=== PATIENT | male | born 1980 | race American Indian/Alaskan Native ===

== ENCOUNTER 2018-12-29 08:55 | Emergency (ER) | payer OTHER, MEDICAID ==
--- NOTE | 2018-12-29 09:11 | EDM.PDOC ---
ED HPI GENERAL MEDICAL PROBLEM - General Chief Complaint: Upper Extremity Injury/Pain Stated Complaint: PAIN IN ARM Time Seen by Provider: 12/29/18 09:10 Source of Information: Reports: Patient, RN, RN Notes Reviewed History Limitations: Reports: No Limitations - History of Present Illness INITIAL COMMENTS - FREE TEXT/NARRATIVE: Pt to ER with c/o numbness/tingling, burning pain from the left elbow down to the hand. He states he cannot clench his hand. He states he has had back problems for many years. Denies any recent injury. He states he was seen in the clinic and was to start physical therapy, but had to renew his Medicaid and was unable to start yet. States the pain is worst when he is laying down, but does not depend on a position laying down, i.e. side to side, back. Onset: Gradual - Related Data Allergies Allergy/AdvReac Type Severity Reaction Status Date / Time No Known Allergies Allergy Verified 12/29/18 09:00 Home Meds: Home Meds Sertraline [Zoloft] 50 mg PO DAILY 12/29/18 [History] Past Medical History HEENT History: Reports: None Cardiovascular History: Reports: None Respiratory History: Reports: None Gastrointestinal History: Reports: None Genitourinary History: Reports: None Musculoskeletal History: Reports: None Neurological History: Reports: None Psychiatric History: Reports: Depression Endocrine/Metabolic History: Reports: None Hematologic History: Reports: None Immunologic History: Reports: None Oncologic (Cancer) History: Reports: None Dermatologic History: Reports: None - Infectious Disease History Infectious Disease History: Reports: None - Past Surgical History Head Surgeries/Procedures: Reports: None Social & Family History - Family History Family Medical History: Noncontributory - Tobacco Use Smoking Status *Q: Never Smoker - Caffeine Use Caffeine Use: Reports: Soda - Recreational Drug Use Recreational Drug Use: No Review of Systems - Review of Systems Review Of Systems: ROS reveals no pertinent complaints other than HPI. ED EXAM, GENERAL - Physical Exam Exam: See Below Exam Limited By: No Limitations General Appearance: Alert, WD/WN, No Apparent Distress Eye Exam: Bilateral Eye: EOMI, Normal Inspection Ears: Normal External Exam, Hearing Grossly Normal Nose: Normal Inspection Throat/Mouth: Normal Inspection, Normal Voice, No Airway Compromise Head: Atraumatic, Normocephalic Neck: Normal Inspection, Supple, Non-Tender, Full Range of Motion Respiratory/Chest: No Respiratory Distress, Lungs Clear, Normal Breath Sounds, No Accessory Muscle Use, Chest Non-Tender Cardiovascular: Normal Peripheral Pulses, Regular Rate, Rhythm, No Edema, No Gallop, No JVD, No Murmur, No Rub Peripheral Pulses: 2+: Radial (L), Radial (R) GI/Abdominal: Normal Bowel Sounds, Soft, Non-Tender, No Organomegaly, No Distention (Male) Exam: Deferred Rectal (Males) Exam: Deferred Back Exam: Normal Inspection, Full Range of Motion, NT Extremities: Normal Inspection, Arm Pain (left arm numbness/tingling, burning pain, difficulty clenching the left hand), Limited Range of Motion Neurological: Alert, Oriented, CN II-XII Intact, Normal Cognition, Normal Gait Psychiatric: Normal Affect, Normal Mood Skin Exam: Warm, Dry, Intact, Normal Color, No Rash Lymphatic: No Adenopathy Course - Vital Signs Last Recorded V/S: Last Vital Signs Temp 96.8 F 12/29/18 08:59 Pulse 61 12/29/18 08:59 Resp 18 12/29/18 08:59 BP 146/91 H 12/29/18 08:59 Pulse Ox 100 12/29/18 08:59 - Orders/Labs/Meds Orders: Active Orders 24 hr Category Date Time Status Cervical Spine 2V or 3V [CR] Urgent Exams 12/29/18 09:17 Taken Elbow 2V Lt [CR] Urgent Exams 12/29/18 10:05 Taken Thoracic Spine 2V [CR] Urgent Exams 12/29/18 09:17 Taken Wrist Comp Min 3V Lt [CR] Urgent Exams 12/29/18 10:05 Taken - Radiology Interpretation Free Text/Narrative:: Cspine xray: Unremarkable radiograph. Thoracic xray: IMPRESSION: Unremarkable radiograph. Thank you for allowing us to participate in the care of your patient. Dictated and Authenticated by: Frederick De Luna MD 12/29/2018 10:19 AM Central Time ([place] & [place]) left elbow xray: No acute findings left wrist xray: No acute findings See rad report Departure - Departure Time of Disposition: 10:34 Disposition: Home, Self-Care 01 Condition: Good Clinical Impression: Cervical radiculopathy, Left elbow tendonitis - Discharge Information *PRESCRIPTION DRUG MONITORING PROGRAM REVIEWED*: No *COPY OF PRESCRIPTION DRUG MONITORING REPORT IN PATIENT CARLOS: No Instructions: Tendinitis, [id number], Cervical Radiculopathy, [id number] Forms: ED Department Discharge Additional Instructions: RX: Prednisone Rest left arm as much as possible Wear wrist splint as tolerated Start physical therapy See [facility] Reyes next week for MRI May use Tylenol and/or ibuprofen as directed for pain - My Orders Last 24 Hours: My Active Orders 12/29/18 09:17 Cervical Spine 2V or 3V [CR] Urgent Thoracic Spine 2V [CR] Urgent 12/29/18 10:05 Elbow 2V Lt [CR] Urgent Wrist Comp Min 3V Lt [CR] Urgent - Assessment/Plan Last 24 Hours: My Active Orders 12/29/18 09:17 Cervical Spine 2V or 3V [CR] Urgent Thoracic Spine 2V [CR] Urgent 12/29/18 10:05 Elbow 2V Lt [CR] Urgent Wrist Comp Min 3V Lt [CR] Urgent
== END 2018-12-29 10:45 | disposition home or self-care (01) ==
LOC: DL.ED 08:55
DX: M54.12 Radiculopathy, cervical region (principal); M77.9 Enthesopathy, unspecified; F32.9 Major depressive disorder, single episode, unspecified; Z79.899 Other long term (current) drug therapy
CPT/HCPCS: 72040; 72070; 73070-LT; 73110-LT; 99283-25

== ENCOUNTER 2019-12-10 14:07 | Emergency (ER) | payer BC, MEDICAID ==
[2019-12-10] MEDS ORDERED: Aspirin 81 MG Tab.Chew PO ONE (14:37)
[2019-12-10] MEDS ORDERED: Sodium Chloride 0.9% 10 ML Syringe FLUSH PRN (14:37)
--- NOTE | 2019-12-10 14:51 | EDM.PDOC ---
ED HPI GENERAL MEDICAL PROBLEM - General Chief Complaint: Chest Pain Stated Complaint: CHEST PAIN Time Seen by Provider: 12/10/19 14:45 Source of Information: Reports: Patient, Old Records, RN, RN Notes Reviewed History Limitations: Reports: No Limitations - History of Present Illness INITIAL COMMENTS - FREE TEXT/NARRATIVE: Pt presents to ER by POV with c/o a sharp upper left chest pain that began between 0700HRS and 0800HRS. Pt denies radiating pain, palpitations, shortness of breath, cough, wheezing, fever, chills, neck pain, any lifting or straining, or injury. The pain is rated 8/10. The pain slightly alleviated by rest and immobilization. Breathing, and movement of the chest and left upper extremity aggravate the pain. Denies N/V, abdominal pain or back pain. Onset: Today Duration: Constant Location: Reports: Chest Quality: Reports: Sharp Severity: Severe Improves with: Reports: Immobilization Worsens with: Reports: Breathing, Movement Associated Symptoms: Reports: No Other Symptoms Left Chest Pain Score (Numeric/FACES): 8 - Related Data Allergies Allergy/AdvReac Type Severity Reaction Status Date / Time No Known Allergies Allergy Verified 12/10/19 14:19 Home Meds: Home Meds Sertraline [Zoloft] 50 mg PO DAILY 12/29/18 [History] Pantoprazole Sodium [Protonix] 40 mg PO BID 08/27/19 [History] Past Medical History HEENT History: Reports: None Cardiovascular History: Reports: None Respiratory History: Reports: None Gastrointestinal History: Reports: GERD, GI Bleed Genitourinary History: Reports: None Musculoskeletal History: Reports: None Neurological History: Reports: None Psychiatric History: Reports: Depression Endocrine/Metabolic History: Reports: None Hematologic History: Reports: Anemia, Blood Transfusion(s) Immunologic History: Reports: None Oncologic (Cancer) History: Reports: None Dermatologic History: Reports: None - Infectious Disease History Infectious Disease History: Reports: None - Past Surgical History Head Surgeries/Procedures: Reports: None Social & Family History - Family History Family Medical History: Noncontributory - Tobacco Use Smoking Status *Q: Former Smoker Tobacco Use Within Last Twelve Months: Cigarettes Used Tobacco, but Quit: Yes Month/Year Tobacco Last Used: 2012 - Caffeine Use Caffeine Use: Reports: Coffee - Living Situation & Occupation Living situation: Reports: with Family ED ROS GENERAL - Review of Systems Review Of Systems: Comprehensive ROS is negative, except as noted in HPI. ED EXAM, GENERAL - Physical Exam Exam: See Below Exam Limited By: No Limitations General Appearance: Alert, WD/WN, No Apparent Distress Nose: Normal Inspection Throat/Mouth: Normal Inspection, Normal Voice, No Airway Compromise Head: Atraumatic, Normocephalic Neck: Normal Inspection, Full Range of Motion Respiratory/Chest: No Respiratory Distress, Lungs Clear, Normal Breath Sounds, No Accessory Muscle Use, Other (left upper chest tender to palpation with reproducible chest pain) Cardiovascular: Normal Peripheral Pulses, Regular Rate, Rhythm, No Edema, No Gallop, No JVD, No Murmur, No Rub Peripheral Pulses: 3+: Radial (L), Radial (R) GI/Abdominal: Normal Bowel Sounds, Soft, Non-Tender, No Organomegaly, No Distention, No Abnormal Bruit, No Mass Back Exam: Normal Inspection, Full Range of Motion. No: CVA Tenderness (L), CVA Tenderness (R) Extremities: Normal Inspection, Normal Range of Motion, Non-Tender, Normal Capillary Refill, No Pedal Edema Neurological: Alert, Oriented, CN II-XII Intact, Normal Cognition, Normal Gait, No Motor/Sensory Deficits Psychiatric: Normal Affect, Normal Mood Skin Exam: Warm, Dry, Intact, Normal Color, No Rash EKG INTERPRETATION EKG Date: 12/10/19 Time: 14:18 Rhythm: Other (SR) Rate (Beats/Min): 81 [place]: LAD-Left [place] Deviation P-Wave: Present QRS: Wide (Nonspecific IVCD) ST-T: Normal QT: Normal Comparison: NA - No Prior EKG Course - Vital Signs Last Recorded V/S: Last Vital Signs Temp 97.9 F 12/10/19 14:09 Pulse 82 12/10/19 14:09 Resp 16 12/10/19 14:09 BP 139/92 H 12/10/19 14:09 Pulse Ox 100 12/10/19 14:09 - Orders/Labs/Meds Orders: Active Orders 24 hr Category Date Time Status EKG 12 Lead [EKG Documentation Completion] [RC] STAT Care 12/10/19 14:32 Active Peripheral IV Care [RC] . DIRECTED Care 12/10/19 14:37 Active Sodium Chloride 0.9% [Normal Saline] 1,000 ml Med 12/10/19 15:09 Active IV .BOLUS Sodium Chloride 0.9% [Saline Flush] Med 12/10/19 14:37 Active 10 ml FLUSH ASDIRECTED PRN Peripheral IV Insertion Adult [OM.PC] Stat Oth 12/10/19 14:37 Ordered Medication Orders Sodium Chloride (Normal Saline) 1,000 mls @ 999 mls/hr IV .BOLUS ONE Stop: 12/10/19 16:09 Last Admin: 12/10/19 15:22 Dose: 999 mls/hr Sodium Chloride (Saline Flush) 10 ml FLUSH ASDIRECTED PRN PRN Reason: Keep Vein Open Last Admin: 12/10/19 14:52 Dose: 10 ml Labs: Laboratory Tests 12/10/19 12/10/19 12/10/19 Range/Units 14:17 14:17 14:17 WBC 4.6 L (5.0-10.0) 10^3/uL RBC 4.70 (4.6-6.2) 10^6/uL Hgb 11.8 L (14.0-18.0) g/dL Hct 35.4 L (40.0-54.0) % MCV 75.3 L (80-100) fL MCH 25.1 L (27.0-34.0) pg MCHC 33.3 (33.0-35.0) g/dL Plt Count 250 (150-450) 10^3/uL Neut % (Auto) 61.3 (42.2-75.2) % Lymph % (Auto) 25.9 (20.5-50.1) % [place] % (Auto) 10.3 H (2-8) % Eos % (Auto) 1.8 (1.0-3.0) % Baso % (Auto) 0.7 (0.0-1.0) % D-Dimer, Quantitative < 100 (0-400) ng/mL Sodium 137 (135-145) mmol/L Potassium 3.7 (3.6-5.0) mmol/L Chloride 105 (101-111) mmol/L Carbon Dioxide 22.0 (21.0-31.0) mmol/L Anion Gap 13.7 BUN 21 H (7-18) mg/dL Creatinine 1.7 H (0.6-1.3) mg/dL Est Cr Clr Drug Dosing TNP Estimated GFR (MDRD) 45 BUN/Creatinine Ratio 12.35 Glucose 90 (74-105) mg/dL Calcium 8.8 (8.4-10.2) mg/dl Total Bilirubin 0.6 (0.2-1.0) mg/dL AST 22 (10-42) IU/L ALT 16 (10-60) IU/L Alkaline Phosphatase 65 (42-121) IU/L Troponin I < 0.02 (0.00-0.02) ng/ml Total Protein 7.4 (6.7-8.2) g/dl Albumin 4.0 (3.2-5.5) g/dl Globulin 3.4 Albumin/Globulin Ratio 1.18 Meds: Medications Generic Name Dose Route Start Last Admin Trade Name Freq PRN Reason Stop Dose Admin Sodium Chloride 1,000 mls @ 999 mls/hr 12/10/19 15:09 12/10/19 15:22 Normal Saline IV 12/10/19 16:09 999 mls/hr .BOLUS ONE Administration Sodium Chloride 10 ml 12/10/19 14:37 12/10/19 14:52 Saline Flush FLUSH 10 ml ASDIRECTED PRN Administration Keep Vein Open Discontinued Medications Generic Name Dose Route Start Last Admin Trade Name Freq PRN Reason Stop Dose Admin Aspirin 324 mg 12/10/19 14:37 12/10/19 14:47 Aspirin PO 12/10/19 14:38 324 mg ONETIME ONE Administration Ketorolac Tromethamine 30 mg 12/10/19 15:09 12/10/19 15:22 Toradol IVPUSH 12/10/19 15:10 30 mg ONETIME ONE Administration - Radiology Interpretation Free Text/Narrative:: CXR: no acute process per Rad. report. Departure - Departure Time of Disposition: 15:28 Disposition: Home, Self-Care 01 Condition: Good Clinical Impression: Atypical chest pain, Pleurisy without effusion, Dehydration Instructions: Nonspecific Chest Pain, Pleurisy, [id number], Dehydration, Adult, [id number] Forms: ED Department Discharge Additional Instructions: Rx: Dexamethasone 4mg Drink plenty of water. Follow up in clinic if not improving in 2 to 3 days. Sepsis Event Note - Focused Exam Vital Signs: Vital Signs Temp Pulse Resp BP Pulse Ox 12/10/19 14:09 97.9 F 82 16 139/92 H 100 Date Exam was Performed: 12/10/19 Time Exam was Performed: 15:27 - My Orders Last 24 Hours: My Active Orders 12/10/19 14:32 EKG 12 Lead [EKG Documentation Completion] [RC] STAT 12/10/19 14:37 Peripheral IV Care [RC] . DIRECTED Sodium Chloride 0.9% [Saline Flush] 10 ml FLUSH ASDIRECTED PRN Peripheral IV Insertion Adult [OM.PC] Stat 12/10/19 15:09 Sodium Chloride 0.9% [Normal Saline] 1,000 ml IV .BOLUS - Assessment/Plan Last 24 Hours: My Active Orders 12/10/19 14:32 EKG 12 Lead [EKG Documentation Completion] [RC] STAT 12/10/19 14:37 Peripheral IV Care [RC] . DIRECTED Sodium Chloride 0.9% [Saline Flush] 10 ml FLUSH ASDIRECTED PRN Peripheral IV Insertion Adult [OM.PC] Stat 12/10/19 15:09 Sodium Chloride 0.9% [Normal Saline] 1,000 ml IV .BOLUS
[2019-12-10 14:56] LABS: ANION GAP 13.7; CHLORIDE,CL 105 mmol/L (101-111); SODIUM,NA 137 mmol/L (135-145)
[2019-12-10] MEDS ORDERED: Ketorolac 30 MG/ML SDV IVPUSH ONE (15:09)
[2019-12-10] MEDS ORDERED: Sodium Chloride 0.9% 1,000 ML IV ONE (15:09)
--- NOTE | 2019-12-10 15:18 | CR ---
EXAMINATION: Chest 1V Frontal SEX: Male AGE: 39 years CLINICAL HISTORY: 39-year-old male with CHEST PAIN. INTERPRETATION: 1. External wellness program administrator leads. Less than optimal inspiratory effort. 2. Normal cardiac silhouette without vascular congestion, cephalization of flow, alveolar edema or dependent effusion. 3. No lung mass, hilar lymphadenopathy or focal lobar pneumonia. 4. No atelectasis/collapse. 5. No pneumothorax or free subdiaphragmatic air. No pneumomediastinum. Midline tracheal airway unremarkable. CONCLUSION: No acute cardiopulmonary abnormality.
== END 2019-12-10 16:35 | disposition home or self-care (01) ==
LOC: DL.ED 14:07
DX: R09.1 Pleurisy (principal); E86.0 Dehydration; F32.9 Major depressive disorder, single episode, unspecified; K21.9 Gastro-esophageal reflux disease without esophagitis; Z87.891 Personal history of nicotine dependence; Z79.899 Other long term (current) drug therapy
CPT/HCPCS: 36415; 71045; 80053; 84484; 85025; 85379; 93005; 96361; 96374; 99285; A9270; J1885; J7030